=== PATIENT | female | born 2000 | race Caucasian/White ===

== ENCOUNTER 2024-08-04 08:15 | Outpatient (RCR) | payer OTHER, SELFPAY ==
[2024-07-24 12:22] VITALS: BMI 20.7
[2024-07-24 12:23] VITALS: BP 104/64; PULSE 80; TEMP 37.3
--- NOTE | 2024-07-24 15:02 | PC.ADMIT ---
Patient is a 24 year old single female who was referred to [facility] by her psychiatrist secondary to increase in sxs of depression within the past few weeks. Patient had been experiencing depression sxs for the past year however this increased d/t a conflict she had with her sister whom she was living with previously. Patient reports that living with her sister did not work out and that her sister was not very nice to her. She stated that this caused conflict with in the family. She also reports that she does not want to bother her mother with her issues as her mother is struggling with her own issues and reportedly tried to commit suicide last year. Patient reports she has 3 degrees. She reports she has one of her degrees in sports medicine however had an production internship over the summer in [place] and she did not like where she was and did not get a long with the people there. She is unmotivated to get a job at this time and has been living off her savings which she does not want to do however feels unmotivated to do anything else at this time. She stated she is not interested in baseball however is not interested in sports anymore. She reports her greatest fear is having to explain why she has not lived up to her potential. Patient is currently alert and oriented x4. Calm and cooperative. She presented with depressed mood and blunted affect. She reports passive SI stating, I want to waste away . She denied any plans or intent to kill herself. Denied any history of SA. She was given a copy of her safety plan if needed. Medications reconciled with patient, patient's medication list per Psychiatrist, and per pharmacies. Patient reports taking medications as prescribed. She reports last filled Ritalin through mail order. Psychiatrist paperwork stated last filled Ritalin in March 29, 2024 for 90 days. Patient reports weigh loss of 7-8 lbs in the past few months and has been sleeping too much d/t depression.
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
--- NOTE | 2024-07-26 15:04 | HO.PHP ---
PHP staff member faxed over a referral for OP therapy at the [facility] in [place] for [place]. PHP staff member is awaiting on that appointment date and time.
--- NOTE | 2024-07-27 15:48 | HO.PHP ---
Client's case has been opened and reviewed in team.
--- NOTE | 2024-08-01 23:41 | P.PNPSP_ITS ---
Subjective Subjective Date of Service: 08/01/24 Reason For Visit: MDD Interim History: Patient seen for follow-up. Feel better than the last time you saw me Energy is still low a little better but motivation is low . Stil feeling depressed not really ready to engage with life... I used to be jassi-ho Sleep is improving. Had some initial dizziness with citapram upon initiating but says this has since dissipated. Denies any SI, HI, AH, VH. Medication Compliance: Yes Side effects from medications: No Attending Groups: Yes Review of Systems Acute medical concerns: No Mental Status Exam Mental Status Exam Narrative: Alert, oriented, in no acute distress. Calm, cooperative, forthcoming, but reserved. Polite, inhibited, distant. No psychomotor agitation or neurovegetative retardation. Eye contact maintained. Mood depressed, affect less constricted more appropriate. Speech normal. Thought process linear, coherent, organized. Thought content related to stressors, denies any hopelessness, denies SI or HI. No paranoia or delusional content elicited. No evidence of psychosis. Insight and judgment - fair but adequate. Diagnostics Vital Signs (24Hr): BMI result Body Mass Index 20.7 Assessment & Plan Assessment & Plan (1) Major depressive disorder, recurrent severe without psychotic features: Status: Acute Code(s): F33.2 - Major depressive disorder, recurrent severe without psychotic features (2) FARNAZ (generalized anxiety disorder): Status: Acute Code(s): F41.1 - Generalized anxiety disorder Plan Admit to [facility] VS reviewed: abrefile, BP ? bpm start citalopram 10 mg qhs (start 1/2 tablet x 2 nights then increase to whole tablet) hold lithium for now (as may be causing/worsening GI symptoms, pt suspects she is not tolerating this well methylphenidate 10 mg qd (last filled 01/2024 - augmentation for depression per pt)) lithium 150 mg qhs ( depr only) mirtazapine 15 mg qhs lorazepam 0.5 mg-1 mg qd prn continue other regular medications?- OCP daily Routine lab work ordered EKG, routine for baseline QTc for medication considerations UDS as indicated [facility] reviewed - Rx filled for MPH x2 and lorazepam x1 in 01/2024, none since Continue to monitor as per protocol Patient educated on: diagnosis and medication risk/benefits Informed Consent: understands Reason for contiued partial hosp. stay Substantial Risk for: inability to function and med/psych decompensation Certification I certify that partial hospital treatment is medically necessary due to the symptoms and problems resulting from the patient's mental illness and the failure to treat the patient at the partial hospital level of care would likely result in the patient requiring inpatient psychiatric care which could not be prevented at a less intensive level of care. Total time managing care of this patient today _30___ minutes. Discharge Plan Discharge Attending provider: Sandrita Correa Medications: New cholecalciferol (vitamin D3) [Vitamin D3] 50 mcg (2,000 unit) capsule 100 mcg PO DAILY Qty: 60 0RF Continued drospirenone-ethinyl estradiol [Luli] 3-0.03 mg Tablet 1 tab PO DAILY Rx Instructions: Last filled 06/01/24 x 3 month supply. methylphenidate HCl 10 mg Tablet Extended Release 10 mg PO DAILY Qty: 14 0RF Rx Instructions: Last filled 03/29/24 for 90 days. Changed citalopram 10 mg tablet 15 mg PO .QHS Qty: 45 0RF mirtazapine 15 mg tablet 7.5 - 15 mg PO BEDTIME PRN (Reason: sleep, appetite) Qty: 30 0RF Rx Instructions: Last filled 07/20/23 #30. Discontinued lithium carbonate 150 mg Capsule 150 mg PO BEDTIME Patient Comments: Patient stated she takes at bedtime. Patient stated this is a new medication. Rx Instructions: Take one capsule x 1 week then increase to 1 capsule twice a day. Last filled last filled last week per pharmacy. No Action lorazepam 0.5 mg Tablet 0.5 - 1 mg PO DAILY PRN (Reason: Abdominal pain secondary to stress.) Rx Instructions: Take one to 2 tabs daily, 30 minutes before evening meal. Patient stated she takes PRN. Last filled February 14, 2024. Stand Alone Forms: Patient Portal Discharge page Patient Education: Depression (ED), Depression (DC), Anxiety (GEN) Print Language: Bahraini
--- NOTE | 2024-08-04 12:01 | HO.PHPPROGNO ---
Subjective Subjective Date of Service: 08/04/24 Reason For Visit: MDD Interim History: Patient seen for follow-up, anticipating discharge at the end of program today.? It's been pretty good. I'm glad I stayed SHe is doing well with dose of Celexa at 15 mg qhs for past few days. No adverse effects. Denies any acute issues or concerns. Medication compliant, medications well-tolerated. Denies any adverse effects.? Mood is stable.? Denies any hopelessness or SI. Denies thoughts of harming self or others at this time. Denies any aggressive ideation or HI. Denies any paranoia or AH or VH. Sleep, appetite, energy stable. Medication Compliance: Yes Side effects from medications: No Attending Groups: Yes Review of Systems Acute medical concerns: No Mental Status Exam Mental Status Exam Narrative: Alert, oriented, in no acute distress. Calm, cooperative. Mood stable, affect appropriate. Speech normal. Thought process linear, coherent, more goal-directed. Thought content related to stressors, future-oriented, denies any helplessness, hopelessness or SI.? No aggressive ideation or HI. No paranoia or delusional content elicited. No evidence of psychosis. Insight and judgment fair-good. Diagnostics Vital Signs (24Hr): BMI result Body Mass Index 20.7 Assessment & Plan Assessment & Plan (1) Major depressive disorder, recurrent severe without psychotic features: Status: Acute Code(s): F33.2 - Major depressive disorder, recurrent severe without psychotic features (2) FARNAZ (generalized anxiety disorder): Status: Acute Code(s): F41.1 - Generalized anxiety disorder Plan Discharge from [facility] Continue regular medications Refills sent to pharmacy Will defer further medication management to outpatient provider *Safety plan reviewed *Discharge diagnoses, treatment course, discharge plan have been reviewed with patient (including medication regime, medication management, potential side effects) as well as treatment rationale were also revisited *Discharge paperwork signed and given to patient, copy sent for scanning to chart Patient educated on: diagnosis and medication risk/benefits Informed Consent: understands Reason for contiued partial hosp. stay Substantial Risk for: stable for discharge Certification I certify that partial hospital treatment is medically necessary due to the symptoms and problems resulting from the patient's mental illness and the failure to treat the patient at the partial hospital level of care would likely result in the patient requiring inpatient psychiatric care which could not be prevented at a less intensive level of care. Total time managing care of this patient today __30__ minutes. Discharge Plan Discharge Attending provider: Sandrita Correa Medications: New cholecalciferol (vitamin D3) [Vitamin D3] 50 mcg (2,000 unit) capsule 100 mcg PO DAILY Qty: 60 0RF Continued drospirenone-ethinyl estradiol [Luli] 3-0.03 mg Tablet 1 tab PO DAILY Rx Instructions: Last filled 06/01/24 x 3 month supply. methylphenidate HCl 10 mg Tablet Extended Release 10 mg PO DAILY Qty: 14 0RF Rx Instructions: Last filled 03/29/24 for 90 days. Changed citalopram 10 mg tablet 15 mg PO .QHS Qty: 45 0RF mirtazapine 15 mg tablet 7.5 - 15 mg PO BEDTIME PRN (Reason: sleep, appetite) Qty: 30 0RF Rx Instructions: Last filled 07/20/23 #30. Discontinued lithium carbonate 150 mg Capsule 150 mg PO BEDTIME Patient Comments: Patient stated she takes at bedtime. Patient stated this is a new medication. Rx Instructions: Take one capsule x 1 week then increase to 1 capsule twice a day. Last filled last filled last week per pharmacy. No Action lorazepam 0.5 mg Tablet 0.5 - 1 mg PO DAILY PRN (Reason: Abdominal pain secondary to stress.) Rx Instructions: Take one to 2 tabs daily, 30 minutes before evening meal. Patient stated she takes PRN. Last filled February 14, 2024. Stand Alone Forms: Patient Portal Discharge page Patient Education: Depression (ED), Depression (DC), Anxiety (GEN) Print Language: Khmer
== END 2024-08-04 23:59 | disposition home or self-care (01) ==
LOC: HO.PHPA 08:15
PROVIDERS: Visit Provider Psychiatry & Neurology Psychiatry
DX: F33.2 Major depressive disorder, recurrent severe without psychotic features (principal); F41.1 Generalized anxiety disorder
CPT/HCPCS: 90791; 90853